=== PATIENT | female | born 1980 ===

== ENCOUNTER 2021-05-14 07:35 | Outpatient (CLI) | payer OTHER ==
[2021-05-14 16:41] LABS: SARS-CoV-2 PCR by NAA Not Detected (NotDetected)
== END 2021-05-14 07:36 | disposition home or self-care (01) ==
LOC: CSHLAB 07:35
PROVIDERS: ATTEND Family Medicine
DX: Z20.822 Contact with and (suspected) exposure to COVID-19 (principal)
CPT/HCPCS: U0003; U0005

== ENCOUNTER 2021-05-30 01:04 | Inpatient (IN) | payer MEDICAID, OTHER ==
[2021-05-30 01:40] VITALS: BMI 40.8
[2021-05-30 02:08] LABS: Fetal Membranes Rupture RUPTURE DETECTED (No Rupture)
[2021-05-30] MEDS ORDERED: Bicitra 30 ML UDCUP PO PRN (03:05)
[2021-05-30] MEDS ORDERED: Promethazine HCl 25 MG/ML VIAL IM PRN ×2 (03:05→09:32)
[2021-05-30] MEDS ORDERED: Ondansetron PF 4 MG/2 ML Vial IVP PRN ×2 (03:05→09:32)
[2021-05-30] MEDS ORDERED: Acetaminophen 500 MG TAB PO PRN (03:05)
[2021-05-30] MEDS ORDERED: Famotidine/PF 20 mg/2ml Vial SLOW IVP PRN (03:05)
[2021-05-30] MEDS ORDERED: hydrALAZINE 20 MG/ML VIAL SLOW IVP PRN (03:05)
[2021-05-30] MEDS ORDERED: Azithromycin 500 MG in Sodium Chloride 0.9% 250 ML 250 ML IVPB SCH (03:15)
[2021-05-30] MEDS ORDERED: CEFAZOLIN 2 GM in Premix Bag 1 BAG IVPB SCH (03:15)
[2021-05-30] MEDS ORDERED: Lactated Ringer's 1,000 ML IV SCH ×2 (03:15)
[2021-05-30 03:24] LABS: Hemoglobin 11.7 g/dL (12.0-15.5); Mean Corpuscular HGB CONC 33.7 g/dL (32.0-36.0); Mean Corpuscular Volume 86.1 fl (81.6-98.3); Mean Platelet Volume 10.8 fl (7.4-10.4); Platelet Count 240 10x3/uL (150-450); RBC Distribution Width 14.4 % (11.5-14.5); Red Blood Cell (RBC) Count 4.03 10x6/uL (3.90-5.03); White Blood Cell (WBC) Count 7.6 10x3/uL (3.5-10.5)
[2021-05-30 03:50] LABS: Syphilis Antibody Nonreactive (Nonreactive); Syphilis Antibody Index 0.06 S/CO (<1.00 Non-Reactive)
[2021-05-30 03:52] LABS: Hep B Surf Ag Non-Reactive S/CO (NonReactive)
[2021-05-30 04:12] LABS: HBSAg Index 0.19 S/CO (0-0.99)
[2021-05-30 04:27] LABS: SARS-CoV-2 NAA Rapid Test Not Detected (NotDetected)
[2021-05-30] MEDS ORDERED: Azithromycin 500 MG VIAL ONE (07:00)
[2021-05-30] MEDS ORDERED: Misoprostol 200 MCG TAB ONE (07:06)
[2021-05-30] MEDS ORDERED: Fentanyl 100 MCG/2 ML VIAL ONE (07:38)
[2021-05-30] MEDS ORDERED: Morphine PF 10 MG/10 ML VIAL ONE (07:38)
[2021-05-30] MEDS ORDERED: Ketorolac Tromethamine 30 MG/ML VIAL ONE (07:39)
[2021-05-30] MEDS ORDERED: Ondansetron PF 4 MG/2 ML Vial ONE (07:39)
[2021-05-30] MEDS ORDERED: Dexamethasone 4 mg/ml Vial ONE (07:39)
[2021-05-30 08:48] LABS: RapidComm Collect By NURSE; pH (Cord, venous) 7.354 (7.250-7.350)
[2021-05-30] MEDS ORDERED: Famotidine 40 MG/5 ML Oral Suspension PO SCH (09:00)
[2021-05-30] MEDS ORDERED: Phenylephrine 10 MG/ML VIAL ONE (09:10)
[2021-05-30] MEDS ORDERED: Boostrix 0.5 ML (Tdap) VIAL IM ONE (09:11)
[2021-05-30] MEDS ORDERED: Lanolin Ointment 7 GM TUBE TOP PRN (09:11)
[2021-05-30] MEDS ORDERED: Methylergonovine 0.2 MG/ML VIAL IM PRN (09:11)
[2021-05-30] MEDS ORDERED: Simethicone Chewable 80 MG TAB PO PRN (09:11)
[2021-05-30] MEDS ORDERED: Bisacodyl 10 MG SUPP PR PRN (09:11)
[2021-05-30] MEDS ORDERED: Misoprostol 200 MCG TAB PR PRN (09:11)
[2021-05-30] MEDS ORDERED: NS w/ Oxytocin 30 units 500 ML IV SCH (09:15)
[2021-05-30] MEDS ORDERED: Meperidine HCl/PF 25 MG/ML VIAL SLOW IVP PRN (09:32)
[2021-05-30] MEDS ORDERED: Naloxone HCl 0.4 mg/ml Vial IVP PRN ×2 (09:32)
[2021-05-30] MEDS ORDERED: diphenhydrAMINE 50 MG/ML VIAL IVP PRN (09:32)
[2021-05-30] MEDS ORDERED: Hydrocerin (Eucerin) Cream 120 gm Jar TOP PRN (09:32)
[2021-05-30] MEDS ORDERED: HYDROmorphone 2 MG/ML VIAL SLOW IVP PRN (09:32)
[2021-05-30] MEDS ORDERED: Ketorolac Tromethamine 30 MG/ML VIAL IVP PRN (09:32)
[2021-05-30] MEDS ORDERED: Naloxone HCl 0.4 mg/ml Vial IV PRN (09:32)
[2021-05-30] MEDS ORDERED: Fentanyl 100 MCG/2 ML VIAL SLOW IVP PRN (09:32)
[2021-05-30] MEDS ORDERED: Promethazine HCl 25 MG SUPP PR PRN (09:32)
[2021-05-30] MEDS ORDERED: Ondansetron HCl/PF 4 MG/2 ML Vial IVP PRN (09:32)
[2021-05-30] MEDS ORDERED: Ketorolac Tromethamine 30 MG/ML VIAL IVP SCH (09:45)
[2021-05-30] MEDS ORDERED: Communication Order-Pharmacy FS SCH (09:45)
[2021-05-30] MEDS: Acetaminophen 325 MG TAB PO SCH ×3 (11:09→22:51)
[2021-05-30] MEDS: Docusate 100 MG CAP PO SCH (22:51)
[2021-05-31] MEDS ORDERED: Oxytocin 10 UNITS/ML VIAL ONE (06:31)
[2021-05-31] MEDS ORDERED: Fentanyl 100 MCG/2 ML VIAL ONE (06:31)
[2021-05-31 07:22] LABS: Hemoglobin 9.2 g/dL (12.0-15.5); Mean Corpuscular Hemoglobin 28.8 pg (27.0-33.0); Mean Corpuscular Volume 87.5 fl (81.6-98.3); Mean Platelet Volume 10.5 fl (7.4-10.4); Platelet Count 216 10x3/uL (150-450); RBC Distribution Width 14.6 % (11.5-14.5); Red Blood Cell (RBC) Count 3.19 10x6/uL (3.90-5.03); White Blood Cell (WBC) Count 8.6 10x3/uL (3.5-10.5)
[2021-05-31] MEDS: Acetaminophen 325 MG TAB PO SCH ×4 (08:35→23:51)
[2021-05-31] MEDS: Ibuprofen 800 MG TAB PO SCH ×3 (08:35→21:37)
[2021-05-31] MEDS: Docusate 100 MG CAP PO SCH ×2 (09:02→21:37)
[2021-05-31] MEDS: Prenatal Vitamin 1 TAB PO SCH (09:02)
[2021-05-31] MEDS: HYDROcodone/Acetaminophen 5/325 mg Tablet PO PRN ×3 (09:05→23:50)
[2021-05-31] MEDS ORDERED: Ibuprofen 800 MG TAB PO SCH (14:00)
[2021-06-01] MEDS: Ibuprofen 800 MG TAB PO SCH ×2 (05:13→14:10)
[2021-06-01] MEDS: Acetaminophen 325 MG TAB PO SCH ×2 (05:18→12:13)
[2021-06-01 08:06] VITALS: BP 110/54; TEMP 98.8
[2021-06-01] MEDS: Prenatal Vitamin 1 TAB PO SCH (08:50)
[2021-06-01] MEDS: Docusate 100 MG CAP PO SCH (08:50)
[2021-06-01] MEDS ORDERED: Polyethylene Glycol 3350 17 GM Packet PO SCH (09:00)
== END 2021-06-01 14:25 | disposition home or self-care (01) | DRG 788 ==
LOC: CSHLD/OP 01:04 → CSHLD 03:02 → CSHPP 12:00
PROVIDERS: ADMIT Obstetrics & Gynecology; ATTEND Obstetrics & Gynecology
PROC: 10D00Z1 Extraction of Products of Conception, Low, Open Approach (ICD-10-PCS; principal; 2021-05-30)
DX: O32.1XX0 Maternal care for breech presentation, not applicable or unspecified (principal); Z3A.39 39 weeks gestation of pregnancy; Z37.0 Single live birth; Z20.822 Contact with and (suspected) exposure to COVID-19; O36.63X0 Maternal care for excessive fetal growth, third trimester, not applicable or unspecified; O99.214 Obesity complicating childbirth; O42.02 Full-term premature rupture of membranes, onset of labor within 24 hours of rupture
CPT/HCPCS: 36415; 51702; 82805; 84112; 85027; 86780; 86850; 86900; 86901; 87340; 99285; J0456; J0690; J1100; J1885; J2274; J2370; J2405; J2550; J2590; J3010; J7050; S0028; U0002